=== PATIENT | female | born 1970 | race Caucasian/White ===

== ENCOUNTER 2016-12-29 09:30 | Inpatient (IN) | payer MEDICAID ==
[~2016-12-29] VITALS: Ht 154.9 cm; Wt 63.8 kg
--- NOTE | ~2016-12-29 | ECH ---
Transthoracic Echocardiography Report (TTE) Demographics Patient Name CECILIA KUMAR Date of Study 12/30/2016 L Patient Number [id number] Visit Number [id number] Date of 1970 Room Number 414 Accession Number [id number] Gender Female Age 46 year(s) Referring Nuris Lao Oil Filters Inspector Alanna Sanders [facility] Physician Physician Interpreting King Andres Snow MD Dog Groomer Physician Supervising Ordering Physician Nuris Lao MD/MLP Nurse Stress Veterinary Medicine Scientist Conclusions Summary Technically good exam. The estimated left ventricular ejection fraction is 60-65%. The interatrial septum appears mildly aneurysmal. Informed consent was obtained, bubble study was done, there is no evidence for a PFO or ASD. No significant valvular abnormalities. Procedure Type of Study TTE procedure:Echo Complete SF. Procedure Date Date: 12/30/2016 Start: 10:57 AM Technical Quality: Good visualization Indications:Diabetes and Chest pain. Additional Indications:Left sided weakness,History of VT Appropriate Use Criteria: 9 Height: 61 inches Weight: 130 pounds BSA: 1.57 m Rhythm: NSR HR: 60 bpm BP: 100/50 mmHg M-Mode/2D Measurements LV Diastolic Dimension: 4.59 cm LV Systolic Dimension: 3.23 cm LV Septum Diastolic: 0.73 cm LV PW Diastolic: 0.67 cm AO Root Dimension: 2.75 cm Cardiac Output: 4.21 l/min LA Dimension: 2.81 cm Cardiac Index: 2.68 l/min*m RV Diastolic Dimension: 3.33 cm LA volume index: 20 ml/m LVOT: 2.03 cm LVOT VTI: 21.7 cm RV Base: 2.3 cm LV Stroke volume: 70.2 ml RV Mid: 1.6 cm LV Stroke volume index: 44.71 ml/m TAPSE: 1.9 cm TDI-S': 14 cm/s Doppler Measurements AV Peak Velocity: 1.3 m/s MV Peak E-Wave: 0.71 m/s AV Peak Gradient: 6.76 mmHg MV Peak A-Wave: 0.45 m/s AV Mean Gradient: 3.98 mmHg MV E/A Ratio: 1.56 LVOT Peak Velocity: 0.99 m/s MV P1/2t: 48.5 msec AV Area (Continuity):2.57 cm MV Deceleration Time: 211.3 msec MV Area (PHT): 4.54 cm PV Peak Velocity: 0.75 m/s E' Septal Velocity: 0.1 m/s PV Peak Gradient: 2.24 mmHg E' Lateral Velocity: 0.13 m/s A' Septal Velocity: 0.09 m/s A' Lateral Velocity: 0.09 m/s RA Area: 9.08 cm Findings Left Ventricle Normal left ventricle size and function. Diastolic assessment reveals normal relaxation. Right Ventricle Normal right ventricle structure and function. Left Atrium Normal left atrial size. The interatrial septum appears mildly aneurysmal. Informed consent was obtained, bubble study was done, there is no evidence for a PFO or ASD. Right Atrium Normal right atrial size. Mitral Valve Normal mitral valve structure and function. Trivial mitral regurgitation by color Doppler. Aortic Valve Normal aortic valve structure and function. Tricuspid Valve Normal tricuspid valve structure and function. No tricuspid regurgitation by color Doppler. Pulmonic Valve Normal pulmonic valve structure and function. Pericardial Effusion No evidence of pericardial effusion. Miscellaneous Visualized portions of the aortic root and ascending aorta appear normal in size. Pleural Effusion No evidence of pleural effusion. Signature
[2017-01-01] MEDS ORDERED: ASA CHILDREN'S81 MG PO (19:22)
[2017-01-01] MEDS ORDERED: [UNRECOGNIZED DRUG - OTHER] PO (19:22)
[2017-01-01] MEDS ORDERED: KEFLEX-DPS500 MG PO (19:22)
[2017-01-01] MEDS ORDERED: LEVEMIR100 UNIT/1 SQ (19:23)
[2017-01-01] MEDS ORDERED: PRILOSEC DPS20 MG PO (19:23)
[2017-01-01] MEDS ORDERED: SYNTHROID DPS0.1 MG PO (19:23)
[2017-01-01] MEDS ORDERED: NOVOLOG100 UNIT/2 SQ (19:25)
--- NOTE | 2017-01-04 11:03 | CO ---
ADMIT: 12/29/2016 RM/LOC: 414 [facility] MR#: [id number] [address] [place], [place] [address] CECILIA KUMAR [address] [place] [address] Consultation SEX: F AGE: 46 : 1970 DATE OF CONSULTATION: 12/30/2016 ATTENDING PHYSICIAN: Sayra Lawler CONSULTING PHYSICIAN: Sim Beaulieu MD REASON FOR CONSULTATION: Left-sided weakness. HISTORY OF PRESENT ILLNESS: The patient is a 46-year-old woman with a past medical history as below, who developed left-sided weakness yesterday around 03:00 a.m. It was also related with some subjective numbness and tingling. This is not the first time it happened. She actually had 4 similar spells, more so pronounced with the tingling, first episode started 4 months ago. She used to have migraine headaches frequent, but now they have backed off a little bit. PAST MEDICAL HISTORY: Significant for coronary artery disease with non STEMI in August. She has also diabetes which is poorly controlled, A1c 13.8. She is a smoker, hypothyroid. ALLERGIES: SHE IS ALLERGIC TO PENICILLIN AND DOXYCYCLINE. FAMILY HISTORY: Positive for stroke in her grandparents. MEDICATIONS: On outpatient basis include levothyroxine, verapamil, Lantus, Humalog, and aspirin 81. SOCIAL HISTORY: Denies alcohol. Denies illicit drugs, but smokes daily. REVIEW OF SYSTEMS: All systems reviewed, negative except as per HPI. PHYSICAL EXAMINATION: VITAL SIGNS: Temperature 95.9, heart rate 68, respirations 16, blood pressure 100/50, saturation 97% on room air. GENERAL: The patient is in no acute discomfort. She only complains of some headache. HEAD: Normocephalic and atraumatic. Poor oral dentition. NECK: Supple. CHEST: Normal respiratory rises. CARDIOVASCULAR: Regular rate and rhythm. ABDOMEN: Soft, nondistended. EXTREMITIES: No clubbing or cyanosis. NEUROLOGICAL EXAMINATION: The patient is alert and appropriately oriented. No aphasia. No dysarthria noted. Fund of knowledge appears intact. Memory intact. Cranial nerves; visual joel are intact. Pupils are equal and reactive. Extraocular muscles are intact. Facial sensation is normal. Face is symmetric. Hearing to voice is intact. Uvula midline. Palatal arch is symmetric. Shoulder shrug symmetric. Tongue is midline, freely moveable. Motor examination reveals right-sided full strength and normal tone on both ADMIT: 12/29/2016 RM/LOC: 414 [facility] MR#: [id number] [address] [address] CECILIA KUMAR [address] [place] [address] [address] [place] [address] Consultation SEX: F AGE: 46 : 1970 sides, left-side has some drift in her left upper extremity, but not to pronation. There is a feeling of give-way weakness during her examination except for her left ankle, but there is a poor effort to the examination as well noted. Sensory examination, bilaterally intact. Reflexes symmetric with no pathological reflexes observed. Toes are downgoing bilaterally. Coordination; [id number] is intact bilaterally. Gait is deferred. ASSESSMENT: 1. Left-sided weakness with functional appearance, but has multiple risk factors. Therefore, I would recommend to obtain MRI brain to rule out lacunar ischemic lesion. 2. Migraine. 3. Potential left foot drop. This can be worked up as an outpatient with EMG nerve conduction studies. PLAN: We will obtain MRI as mentioned above and start treatment of her headache. She will be given valproic acid 500 mg IV once to abort the current headache which is building up. Thank you very much for this interesting consultation. Sim Beaulieu MD/ jarett JOB #: [id number] CC: Sayra Lawler, Attending Physician Sayra Lawler, Family Physician
--- NOTE | 2017-01-08 19:40 | ER ---
ADMIT: 12/29/2016 RM/LOC: 414 [facility] MR#: [id number] [address] [place], [place] [address] CECILIA KUMAR [address] [place] [address] Emergency Room Report SEX: F AGE: 46 : 1970 DATE: 12/29/2016 CHIEF COMPLAINT: Left-sided weakness. HISTORY OF PRESENT ILLNESS: The patient is a 46-year-old female, who comes in with multiple complaints including left-sided weakness that has been present since about 03:00 a.m., this morning when she got up to use the restroom. She states that she was unable to get up and go to the restroom because she felt so weak, but primarily just on her left side. She said she felt fine when she went to bed. She does also report that she is having some mild chest discomfort, and that her blood sugar has been running high, and overall she just feels very weak. Additionally, the patient states she does have some mild lower abdominal discomfort. She has had some nausea with no vomiting, and increased urination in general. REVIEW OF SYSTEMS: Ten-point review of systems is done and is negative except as in HPI and on T-sheet. PAST MEDICAL HISTORY: Significant for coronary artery disease with a non- STEMI in August 24. Insulin-dependent diabetes. No diagnosis of COPD, but she has been a smoker most of her adult life. She has a diagnosis of hypothyroidism also. PAST SURGICAL HISTORY: She has had a tonsillectomy, sinus surgery, and bilateral tubal ligation. MEDICATIONS: See nurse's note. ALLERGIES: PENICILLIN AND DOXYCYCLINE. SOCIAL HISTORY: Smokes about a pack a day. Denies any drug or alcohol use. PHYSICAL EXAMINATION: HEENT: Head is atraumatic. Pupils are equal, round, and reactive to light. There is no facial droop. No slurred speech. Trachea is midline. Airway is patent. HEART: Regular rate and rhythm. LUNGS: Mild wheezes bilaterally, but good air movement. ABDOMEN: Has some diffuse lower abdominal tenderness, primarily suprapubic. Good bowel sounds. No rebound tenderness. No guarding. Abdomen is soft. NEUROLOGIC: She has normal sensation on the right upper and lower extremities. Slightly decreased sensation on the left upper and lower. Strength is decreased on the left, and she has drift on her left upper extremity, does not touch the bed; and drift on her left lower extremity, does touch the bed. She has no pedal edema. She has good pulses. No rashes. LABORATORY AND IMAGING DATA: CT head shows nothing acute. Laboratory; normal CBC, sodium 131, BUN 25, glucose 545, lactic acid 0.7, CK 20, CK-MB less than 0.5, troponin less than 0.015, INR less than 1. BNP 28. EKG shows sinus rhythm, rate of 81. No signs of ST-elevation or acute CA. Chest x-ray is ADMIT: 12/29/2016 RM/LOC: 414 [facility] MR#: [id number] [address] [address] CECILIA KUMAR [address] [place] [address] Emergency Room Report SEX: F AGE: 46 : 1970 normal. EMERGENCY DEPARTMENT COURSE: The patient presented with concern of possibility of stroke. We went ahead and got a bedside glucose and sent her for a CT of her head. CT head showed nothing acute. Course of our workup showed the patient was hyperglycemic, and after discussing the case with her primary care physician, it sounds like she has had problems with some neurologic symptoms in the past when she has been hyperglycemic. Dr. Lawler was notified and she is very familiar with the patient. It is unlikely this is a CVA at this time. Plan is to admit the patient for further workup. She is given normal saline fluid resuscitation and Humalog in the Emergency Department. She is diagnosed in stable condition. DIAGNOSIS: 1. Hyponatremia. 2. Hyperglycemia. 3. Poorly controlled diabetes. 4. Chest pain. 5. Left-sided weakness. Didier Harman MD/ jarett JOB #: [id number] CC: Sayra Lawler MD, Attending Physician Sayra Lawler MD, Family Physician
--- NOTE | 2017-01-17 23:26 | DS ---
ADMIT: 12/29/2016 RM/LOC: 414 [facility] MR#: [id number] [address] [place], [place] [address] JACINTA KUMAR [address] [place] [address] Discharge Summary SEX: F AGE: 46 : 1970 ADMISSION DATE: 12/29/2016 DISCHARGE DATE: 12/31/2016 DIAGNOSES: 1. Diabetes-nonketotic hyperglycemia. 2. Left-sided weakness. 3. Dehydration. 4. Dyspnea-better. 5. Chest pain-noncardiac. 6. Dental infection. 7. Headaches. 8. Hypothyroid. CONSULTS: Neurology. PROCEDURES: 1. CT head 12/29/2016. 2. MRI/MRA head 12/30/2016. 3. Echo with bubble study 12/30/2016. REASON FOR HOSPITALIZATION: Hyperglycemia and cognitive change. See dictated H and P. LABORATORY AND X-RAY DATA: White blood count 7.7, hemoglobin 15, platelets 223, INR less than 1, PTT 29.2, urine was unremarkable except the sugar, sodium 137, potassium 4, chloride 108, CO2 21, BUN 20, creatinine 0.6, calcium 7.6, pro calcitonin 0.05. Amphetamine was negative, other drug screen results were negative. Lactic acid 0.7, blood sugar on admission was 545, proBNP 28, CK 20, MB less than 0.5, troponin 0.015. Blood sugars were variable, see chart. Hemoglobin A1c 13.8. TSH 18.3, test was negative. Blood cultures were negative. CT head normal. MRI of the brain with and without contrast negative MRI. MRA of the brain negative. Chest x-ray was normal. Echocardiogram with bubble was with an ejection fraction of 60-65%. Interatrial septum was mildly aneurysmal and bubble study showed no PFO or ASD. COURSE IN HOSPITAL: Jacinta presented to the emergency room where she was evaluated and found to be profoundly hyperglycemic and a bit dehydrated. She was given fluid boluses and sliding scale insulin, which was given hourly at first with her Humalog. Lantus was ordered and her thyroid was decreased. In the Emergency Room, was evaluated for left-sided weakness and a possible stroke. I assured Jaicnta as well the emergency room that this was not a stroke but rather her hyperglycemia. She did have a questionable PFO, so I thought this would be the time to evaluate this. Therefore, an echo with bubble study was performed and was found to be negative. She was started on a baby aspirin. She was monitored closely with her fluid status and her blood sugars. Had quite a bit of dental pain. Augmentin was started. It was stressed that she needed to get in to see a dentist as soon as she got out of the hospital. Her dentition is notoriously in poor repair. After looking at ADMIT: 12/29/2016 RM/LOC: 414 [facility] MR#: [id number] [address] [place] [address] JACINTA KUMAR [address] [place] [address] [address] [place] [address] Discharge Summary SEX: F AGE: 46 : 1970 her allergies, her Augmentin was changed to Keflex. Education was given again for diabetes. Dr. Beaulieu was invited to see the through the protocol "for stroke evaluation." He did perform MRI, MRA and a valproic acid, and MRI and MRA of the head. These were all fine. She complained of a headache so she was given valproic acid 500 mg IV x1, I believe, with some good results. After hydration and her sugar came down, her neurologic deficit, although it persisted, had improved immensely. There were no secondary issues and no sources of emboli. Again, her Lantus was increased. She was felt stable for dismissal, and she was subsequently dismissed with: DISCHARGE MEDICATIONS: 1. Lantus 45 units. 2. Keflex 500 t.i.d. for 9 days. 3. Aspirin 81 mg daily. 4. Verapamil 40 b.i.d. 5. Prilosec 20 daily. 6. NovoLog 1 unit per carb and sliding scale. 7. was increased to 0.2 of 100 mcg daily. DISCHARGE INSTRUCTIONS: She will have an appointment with me in 4-6 weeks. She will need a TSH in approximately 2 months. Overall prognosis is fair. I see no reason for work restrictions at this time so she may return without any limitations on Wednesday following her discharge. Overall prognosis is good. Sayra Lawler MD/ ajf JOB #: [id number] CC: Sayra Lawler MD, Attending Physician Sayra Lawler MD, Family Physician
--- NOTE | 2017-02-23 21:19 | HP ---
ADMIT: 12/29/2016 RM/LOC: 414 [facility] MR#: [id number] [address] [place], [place] [address] JACINTA KUMAR [address] [place] [address] History and Physical SEX: F AGE: 46 : 1970 DATE OF SERVICE: CHIEF COMPLAINT: Hyperglycemia with blood sugar over 500 and left sided weakness, concerning for CVA versus TIA. HISTORY OF PRESENT ILLNESS: Jacinta is a 46-year-old, white female with diabetes, who was admitted with a sugar of over 500. She was having significant left-sided weakness. She has had a recent dental infection. There was concern that this might represent a TIA versus a stroke. She was admitted at this time for further evaluation. She describes her left-sided weakness and inability to get up and ambulate to go to the bathroom. All left- sided. She could not walk. She also had a little bit of chest discomfort, which was concerning with her history of a myocardial infarction. Her biggest complaint was just feeling weak overall. Some mild nausea, but no vomiting at the same time. She came into the emergency room. CT scan of the head showed nothing acute. Blood sugar showed 545. Initial CK and troponin were all unremarkable. EKG was unremarkable. She is being admitted at this time for further evaluation and observation to make sure nothing is going to revolve. Of note, there was a history of a possible PFO on previous tests. PAST MEDICAL HISTORY: Abnormal mammogram-mammogram on 05/01/2014 with left breast nodule,? intramammary lymph node. Mammogram left breast on 05/07/2014 with lobulated density lateral left breast that persist. Ultrasound on left breast on 05/07/2014 with 8.7 mm hypoechoic focus at 1 o'clock, which might be a focus of apocrine metaplasia and 5.1 mm complex cyst at 3 o'clock. Repeat ultrasound on 03/19/2015, with diminishing cyst from the prior study in April of 2014. History of elevated D-dimer. Gastric reflux. Tubal ligation. Healthcare maintenance-cath on 08/12/2014 was okay, so issue felt to be thrombus or spasm. Echo on 08/13/2014 with? PFO or ASD. Nuclear stress test on 05/21/2015. Non ST NC-cath on 08/12/2014 was okay, consider thrombus or statin. Echo on 08/13/2014 with? PFO or ASD. Nuclear stress test on 05/21/2015. PFO-possible or ASD on echo with bubble study on 08/13/2014. Following up with [facility]. Pulmonary nodules-CT pulmonary angiogram, on 05/15/2015 with tiny nodules. Repeat CT in 4 months or 09/2015, had repeat CTA on 07/18/2015 with no PE and multiple indeterminate nodules again were seen. We will repeat 11/2015 or so. Status post arthroscopy of the knee. Status post sinus surgery. Status post tonsillectomy and adenoidectomy. Tobacco abuse. Type 2 diabetes, uncontrolled. Hypothyroid. Migraine headaches. MEDICATION: Per nursing on admission, but include: 1. Aspirin 81 mg daily. 2. Lantus. 3. Humalog. 4. Levothyroxine. 5. Omeprazole. 6. Verapamil 80 mg 1/2 twice daily. ALLERGIES: DOXYCYCLINE CAUSING A RASH; PEN VK, SWELLING. ADMIT: 12/29/2016 RM/LOC: 414 [facility] MR#: [id number] [facility] [address] JACINTA KUMAR [address] [place] [address] History and Physical SEX: F AGE: 46 : 1970 SOCIAL HISTORY: She does smoke daily. She does not drink alcohol. She works at [employer]. FAMILY HISTORY: Father with lung cancer, maternal grandmother with heart disease and stroke, maternal grandfather with heart disease and stroke. Paternal grandmother and paternal grandfather all with heart disease and strokes. REVIEW OF SYSTEM: Just does not feel well. Left side is weak. PHYSICAL EXAMINATION: VITAL SIGNS: Per nursing. GENERAL: This is a well-developed, well-nourished, white female, affect appropriate. SKIN: Warm and dry. HEENT: Normocephalic, atraumatic. Anicteric. Mucous membranes are dry. Poor dentition. NECK: Supple. LUNGS: Diminished, but clear. CARDIOVASCULAR: Regular without murmur or gallop. No ectopy. ABDOMEN: Soft. : Deferred. RECTAL: Deferred. EXTREMITIES: No edema. NEUROLOGIC: No focal deficits. IMPRESSION: 1. Hyperglycemia. 2. Diabetes under poor control. 3. Dehydration secondary to this. 4. Elevated sugar. 5. Weakness on the left side-rule out transient ischemic attack and stroke. 6. Dyspnea. 7. Chest pain with history of ST-segment elevation myocardial infarction. 8. ? Patent foramen ovale. ADMIT: 12/29/2016 RM/LOC: 414 [facility] MR#: [id number] [address] [place] [address] JACINTA KUMAR [address] [place] [address] History and Physical SEX: F AGE: 46 : 1970 DISCUSSION: With her possible PFO, very concerned that this is a thrombotic event. We will check an echo with a bubble study just to follow up on her previous issues. She is not on anything more than aspirin a day for anticoagulants. We will check other labs today also. Modify her insulin, probably need to do some diabetic education again. PLAN: 1. Echo with bubble study. 2. PT and OT. 3. Increase activity. 4. Continue thyroid and other home medications. 5. See chart. Sayra Lawler MD/ jarett JOB #: [id number] CC: Sayra Lawler MD, Attending Physician Sayra Lawler MD, Family Physician
== END 2016-12-31 16:44 | disposition home or self-care (01) | DRG 638 ==
LOC: ER 09:30 → EDBD 09:30 → 4PCU 11:30
PROVIDERS: ADMIT Internal Medicine
DX: E11.65 Type 2 diabetes mellitus with hyperglycemia (principal); E87.1 Hypo-osmolality and hyponatremia; R53.1 Weakness; E86.0 Dehydration; M21.372 Foot drop, left foot; K04.7 Periapical abscess without sinus; G43.909 Migraine, unspecified, not intractable, without status migrainosus; I25.10 Atherosclerotic heart disease of native coronary artery without angina pectoris; E03.9 Hypothyroidism, unspecified; F17.210 Nicotine dependence, cigarettes, uncomplicated; I25.2 Old myocardial infarction; Z79.4 Long term (current) use of insulin